=== PATIENT | male | born 1960 | race Caucasian/White ===

== ENCOUNTER 2017-06-07 13:24 | Observation (INO) | payer OTHER ==
[2017-06-07 13:30] VITALS: BMI 33.2
--- NOTE | 2017-06-07 13:30 | PDOC ---
History of Present Illness - General Chief Complaint: Nausea/Vomiting Stated Complaint: vomiting, havent taken pain meds Time Seen by Provider: 06/07/17 13:25 - History of Present Illness Initial Comments: 06/07/17 14:00 57yo male presents ambulatory with his significant other for eval n/v that has been persistent since . States he accidentally threw out his MS Contin 60mg tabs down the toilet on Wednesday. Pt states he thought he was throwing out his tramadol, which his doctor told him to dispose of when he accidentally threw out his MS contin. States he has been in pain management with ERIC Agarwal - [place], [place] ([phone]) for over 15 years and has been on MS contin for that time. Pt states n/v since and last dose of MS contin was Wednesday. Pt states watery diarrhea and vomiting everytime he has tried to eat. C/o abd cramping. Pt denies blood in vomitus or diarrhea. States he has not been able to tolerate PO intake since wednesday. Pt denies f/c. No cp/sob. No abd pain. C/o cramping. No dysuria. No morelos. C/o feeling lightheaded. Pt states he call ERCI Cope at pain management when the incident happened and was told to come in today for a refill of meds. States he had an appt today for 1pm , but felt too lightheaded to make it to the office. Pt states pain management office is in [place]. PMHx: chronic back pain - on chronic pain medications PSHx: denies Allergies: NKDA Past History - Past Medical History Allergies/Adverse Reactions: Allergies Allergy/AdvReac Type Severity Reaction Status Date / Time No Known Allergies Allergy Unverified 01/22/14 08:46 Home Medications: Ambulatory Orders morphine SO4 SUSTAINED ACTING [Ms Contin] 60 mg PO BID 01/22/14 CVA: No COPD: No Other medical history: back - Suicide/Smoking/Psychosocial Hx Smoking History: Current some day smoker Number of Cigarettes Smoked Daily: 10 Information on smoking cessation initiated: Yes 'Breaking Loose' booklet given: 06/07/17 Hx Alcohol Use: No Drug/Substance Use Hx: No Substance Use Type: Prescribed Review of Systems - Review of Systems Able to Perform ROS?: Yes Is the patient limited [place] Citizen proficient: No Constitutional: Yes: Weakness. No: Chills, Fever Respiratory: No: Cough, Shortness of Breath, SOB at Rest Cardiac (ROS): No: Chest Pain, Irregular Heart Rate ABD/GI: Yes: Diarrhea, Nausea, Vomiting, Abdominal cramping. No: Blood Streaked Bowels, Rectal Bleeding, Tarry Stools : No: Burning, Dysuria Musculoskeletal: Yes: Back Pain Neurological: Yes: Weakness, Dizziness (lightheaded). No: Headache, Numbness, Paresthesia, Ataxia All Other Systems: Reviewed and Negative *Physical Exam - Vital Signs Last Vital Signs Temp Pulse Resp BP Pulse Ox 97.6 F 89 18 107/84 98 06/07/17 13:25 06/07/17 13:25 06/07/17 13:25 06/07/17 13:25 06/07/17 13:25 - Physical Exam General Appearance: Yes: Appropriately Dressed, Mild Distress HEENT: positive: EOMI, Pharynx Normal, Other (dry mm, dry cracked tongue) Neck: positive: Supple. negative: Rigid Respiratory/Chest: positive: Lungs Clear, Normal Breath Sounds. negative: Respiratory Distress Cardiovascular: positive: Regular Rhythm, Regular Rate, S1, S2 Gastrointestinal/Abdominal: positive: Flat, Soft. 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 NML intact, Fully Oriented, Alert, Normal Mood/ Affect, Normal Response, Motor Strength 5/5 Heart Score/ECG Review - ECG Intrepretation Comment:: 06/07/17 15:26 sinus at 66, nl axis, nl interval, t wave flattening diffusely, no acute st/t wave findings ED Treatment Course - LABORATORY CBC & Chemistry Diagram: 06/07/17 14:00 06/07/17 14:00 Medical Decision Making - Medical Decision Making 06/07/17 14:47 a/p: 57yo male with n/v/d since throwing out his pain meds accidentally last week -suspect n/v/d from narcotic withdrawal -pt had appt with pain management today -call placed to Karol Cope to discuss the case -will check labs -pt appears dehydrated on exam, will give ivf hydration, nausea control -will monitor and reassess 06/07/17 15:19 pt with elevated wbc - most likely reactive pt with elevated BUN/Cr from baseline of 0.9 sodium 129 Co2 - 20 will keep in obs for ivf hydration -suspect narcotic withdrawal causing n/v/d - dehydration with magaly case discussed with Mirna from [facility] - will keep pt for obs for ivf hydration 06/07/17 16:39 case discussed with Karol Cope - recommends pt call the day he is discharged to arrange for outpt follow up with pain management. states patient is complaint with meds. Asks that the patient bring his discharge summary to the outpt appt. *DC/Admit/Observation/Transfer Diagnosis at time of Disposition: MAGALY (acute kidney injury), Hyponatremia - Discharge Dispostion Condition at time of disposition: Stable Admit: Yes - Referrals - Patient Instructions - Post Discharge Activity
[2017-06-07] MEDS ORDERED: FAMOTIDINE 20 MG/50 ML IVPB 20 MG/50 ML MG IVPB ONE ×2 (13:50→14:07)
[2017-06-07] MEDS ORDERED: ONDANSETRON 4 MG/2 ML VIAL IVPUSH ONE (13:50)
[2017-06-07] MEDS ORDERED: DICYCLOMINE HCL 20 MG/2 ML AMPUL IM ONE (13:50)
[2017-06-07] MEDS ORDERED: SODIUM CHLORIDE 0.9% 1000 ML INFUS.BAG IV ONE ×2 (13:50→13:51)
[2017-06-07] MEDS ORDERED: ONDANSETRON 4 MG/2 ML VIAL ONE (14:07)
[2017-06-07 14:11] LABS: BASO % 4.7 % (0-2.0); HEMATOCRIT 53.4 % (35.4-49); HEMOGLOBIN 18.7 GM/dl (11.7-16.9); LYMPH % 20.8 % (8-40); MCH 32.5 pg (25.7-33.7); MCHC 34.9 g/dl (32.0-35.9); MEAN CELL VOLUME 93.2 fl (80-96); MEAN PLT VOLUME 7.3 fl (7.5-11.1); MONO % 8.6 % (3.8-10.2); NEUT % 64.9 % (42.8-82.8); PLATELET COUNT 355 K/MM3 (134-434); RBC 5.73 M/mm3 (4.00-5.60); RDW 13.3 % (11.9-15.9); WHITE BLOOD COUNT 15.2 K/mm3 (4.0-10.8)
[2017-06-07 14:35] LABS: ALBUMIN 4.3 g/dl (3.5-5.0); ALK PHOS 50 U/L (32-92); ANION GAP 10 (8-16); BILIRUBIN,TOTAL 0.8 mg/dl (0.2-1.0); BLOOD UREA NITROGEN 41 mg/dl (7-18); CALCIUM 8.9 mg/dl (8.4-10.2); CHLORIDE 99 mmol/L (98-107); CO2 20 mmol/L (22-28); GLUCOSE,RANDOM 145 mg/dl (74-106); POTASSIUM 3.8 mmol/L (3.5-5.1); SGOT/AST 35 U/L (10-42); SGPT/ALT 23 U/L (10-40); SODIUM 129 mmol/L (136-145); TOT PROT 7.7 g/dl (6.4-8.3)
[2017-06-07] MEDS ORDERED: morphine CARPU-JECT 4 MG/1 ML DISP.SYRIN IVPUSH ONE (15:18)
[2017-06-07] MEDS ORDERED: DICYCLOMINE HCL 10 MG CAPSULE PO ONE (15:18)
[2017-06-07] MEDS ORDERED: ACETAMINOPHEN 1000 MG/100 ML VIAL (NON FORMULARY) IVPB ONE (15:18)
[2017-06-07] MEDS ORDERED: morphine SULFATE 4 MG/ML VIAL ONE (15:25)
[2017-06-07] MEDS ORDERED: DICYCLOMINE HCL 10 MG CAPSULE ONE (15:38)
[2017-06-07 16:16] LABS: PH,URINE 5.5 (4.5-8); URINE APPEARANCE Clear; URINE BILIRUBIN Negative (NEGATIVE); URINE GLUCOSE (UA) Negative (NEGATIVE); URINE KETONE Negative (NEGATIVE); URINE LEUK ESTERASE Negative (NEGATIVE); URINE NITRITE Negative (NEGATIVE); URINE UROBILINOGEN 0.2 (0.2-1.0)
[2017-06-07 16:20] LABS: URINE BLOOD Trace-lysed (NEGATIVE); URINE COLOR YELLOW; URINE PROTEIN 1+ (NEGATIVE)
[2017-06-07 17:40] LABS: LIPASE 201 U/L (73-393)
[2017-06-07 19:21] LABS: URINE WBC 0-2 (0-2)
[2017-06-07 19:22] LABS: URINE BACTERIA FEW /hpf (NEGATIVE)
[2017-06-07] MEDS ORDERED: ONDANSETRON 4 MG/2 ML VIAL IVPUSH PRN (19:46)
[2017-06-07] MEDS ORDERED: SODIUM CHLORIDE 1,000 ML IV SCH (20:00)
[2017-06-07] MEDS ORDERED: morphine SULFATE 4 MG/ML VIAL IVPUSH ONE (20:45)
[2017-06-07 21:15] LABS: ANION GAP 8 (8-16); BLOOD UREA NITROGEN 33 mg/dl (7-18); CHLORIDE 108 mmol/L (98-107); CO2 17 mmol/L (22-28); CREATININE 1.4 mg/dl (0.6-1.3); GLUCOSE,RANDOM 103 mg/dl (74-106); POTASSIUM 3.1 mmol/L (3.5-5.1); SODIUM 133 mmol/L (136-145)
[2017-06-07] MEDS ORDERED: POTASSIUM CHLORIDE TABS 20 MEQ TABLET.ER (FP) PO ONE (22:17)
--- NOTE | 2017-06-07 23:13 | HP ---
CHIEF COMPLAINT: Nausea, Vomiting, Abdominal Cramping PCP: HISTORY OF PRESENT ILLNESS: This is a 57 y/o man with a past medical history of Chronic Low Back Pain. Who presents to the ED with nausea, vomiting, abdominal cramping, diarrhea x 5days. Patient reports accidentally throwing out his Oxycontin medication. Patient states" I was disposing of my Tramadol because it did not work and I accidentally disposed of my Oxycontin too" Patient reports seeing a pain management provider- Karol REYES, [place] ([phone]) for over 15 years and has been on MS Contin for that time. Patient denies fever, chills, cough, SOB CP, constipation, dysuria. ER course was notable for: (1) Hyponatremia: 129 (2) MAGALY: BUN 41, Cr 2.0 (3) Leukocytosis: 15.2 Recent Travel: None PAST MEDICAL HISTORY: See HPI PAST SURGICAL HISTORY: Social History: Smoking: Current Alcohol: None Drugs: Denies Illicit Family History: Non-contributory Allergies No Known Allergies Allergy (Unverified 01/22/14 08:46) HOME MEDICATIONS: Home Medications Medication Instructions Recorded morphine SO4 SUSTAINED ACTING [Ms 60 mg PO BID 01/22/14 Contin] REVIEW OF SYSTEMS CONSTITUTIONAL: loss of appetite Absent: fever, chills, diaphoresis, generalized weakness, malaise, weight change HEENT: Absent: rhinorrhea, nasal congestion, throat pain, throat swelling, difficulty swallowing, mouth swelling, ear pain, eye pain, visual changes CARDIOVASCULAR: Absent: chest pain, syncope, palpitations, irregular heart rate, lightheadedness , peripheral edema RESPIRATORY: Absent: cough, shortness of breath, dyspnea with exertion, orthopnea, wheezing, stridor, hemoptysis GASTROINTESTINAL:: abdominal pain, nausea, vomiting, diarrhea, Absent: abdominal distension, constipation, melena, hematochezia GENITOURINARY: Absent: dysuria, frequency, urgency, hesitancy, hematuria, flank pain, genital pain MUSCULOSKELETAL: back pain, Absent: myalgia, arthralgia, joint swelling, neck pain SKIN: Absent: rash, itching, pallor HEMATOLOGIC/IMMUNOLOGIC: Absent: easy bleeding, easy bruising, lymphadenopathy, frequent infections ENDOCRINE: Absent: unexplained weight gain, unexplained weight loss, heat intolerance, cold intolerance NEUROLOGIC: Absent: headache, focal weakness or paresthesias, dizziness, unsteady gait, seizure, mental status changes, bladder or bowel incontinence PSYCHIATRIC: Absent: anxiety, depression, suicidal or homicidal ideation, hallucinations. PHYSICAL EXAMINATION Vital Signs - 24 hr 06/07/17 06/07/17 06/07/17 13:25 16:47 19:40 Temperature 97.6 F 98.3 F Pulse Rate 89 Pulse Rate [ 78 Left Radial] Respiratory 18 16 Rate Blood Pressure 107/84 Blood Pressure 118/72 [Right Arm] O2 Sat by Pulse 98 97 99 Oximetry (%) 06/07/17 22:00 Temperature 97.5 F L Pulse Rate 59 L Pulse Rate [ Left Radial] Respiratory 20 Rate Blood Pressure 117/73 Blood Pressure [Right Arm] O2 Sat by Pulse 97 Oximetry (%) GENERAL: Awake, alert, and fully oriented, in no acute distress. HEAD: Normal with no signs of trauma. EYES: Pupils equal, round and reactive to light, extraocular movements intact, sclera anicteric, conjunctiva clear. No lid lag. EARS, NOSE, THROAT: Dry mucous membranes. Ears normal, nares patent, oropharynx clear without exudates. NECK: Normal range of motion, supple without lymphadenopathy, JVD, or masses. LUNGS: Breath sounds equal, clear to auscultation bilaterally. No wheezes, and no crackles. No accessory muscle use. HEART: Regular rate and rhythm, normal S1 and S2 without murmur, rub or gallop. ABDOMEN: Generalized tenderness. Soft, obese, not distended, normoactive bowel sounds, no guarding, no rebound, no masses. No hepatomegaly or splenomegaly. MUSCULOSKELETAL: Lumbar tenderness. Normal range of motion at all joints. No bony deformities. No CVA tenderness. UPPER EXTREMITIES: 2+ pulses, warm, well-perfused. No cyanosis. No clubbing. No peripheral edema. LOWER EXTREMITIES: 2+ pulses, warm, well-perfused. No calf tenderness. No peripheral edema. NEUROLOGICAL: Cranial nerves II-XII intact. Normal speech. Gait not observed. PSYCHIATRIC: Cooperative. Good eye contact. Appropriate mood and affect. SKIN: Warm, dry, normal turgor, no rashes or lesions noted, normal capillary refill. Laboratory Results - last 24 hr 06/07/17 06/07/17 06/07/17 14:00 14:00 14:00 WBC 15.2 H D RBC 5.73 H Hgb 18.7 H D Hct 53.4 H MCV 93.2 MCH 32.5 MCHC 34.9 RDW 13.3 D Plt Count 355 D MPV 7.3 L Neutrophils % 64.9 Lymphocytes % 20.8 D Monocytes % 8.6 Eosinophils % 1.0 Basophils % 4.7 H D Sodium 129 L Potassium 3.8 Chloride 99 Carbon Dioxide 20 L D Anion Gap 10 BUN 41 H D Creatinine 2.0 H D Creat Clearance w eGFR 34.37 Random Glucose 145 H Lactic Acid 2.0 Calcium 8.9 Magnesium 2.0 Total Bilirubin 0.8 D AST 35 D ALT 23 D Alkaline Phosphatase 50 Total Protein 7.7 Albumin 4.3 Lipase 201 Urine Color Urine Appearance Urine pH Ur Specific [place] Urine Protein Urine Glucose (UA) Urine Ketones Urine Blood Urine Nitrite Urine Bilirubin Urine Urobilinogen Ur Leukocyte Esterase Urine RBC Urine WBC Urine Bacteria 06/07/17 06/07/17 15:34 20:30 WBC RBC Hgb Hct MCV MCH MCHC RDW Plt Count MPV Neutrophils % Lymphocytes % Monocytes % Eosinophils % Basophils % Sodium 133 L Potassium 3.1 L Chloride 108 H Carbon Dioxide 17 L Anion Gap 8 BUN 33 H Creatinine 1.4 H D Creat Clearance w eGFR Random Glucose 103 D Lactic Acid Calcium 7.0 L D Magnesium Total Bilirubin AST ALT Alkaline Phosphatase Total Protein Albumin Lipase Urine Color Yellow Urine Appearance Clear Urine pH 5.5 Ur Specific [place] 1.025 Urine Protein 1+ H Urine Glucose (UA) Negative Urine Ketones Negative Urine Blood Trace-lysed H Urine Nitrite Negative Urine Bilirubin Negative Urine Urobilinogen 0.2 Ur Leukocyte Esterase Negative Urine RBC 2-5 Urine WBC 0-2 Urine Bacteria Few ASSESSMENT/PLAN: This is a 57 y/o man with a PMHx of Chronic Back Pain. Placed in Observation for Hyponatremia, Severe Dehydration. Plan: 1. Hyponatremia - Likely secondary to dehydration from excessive emesis due to opioid withdrawal. - Na deficit 732.6meq - NS bolus given in ED - BMPs Q4h until Na corrected - Goal Na correction 6-8 meq/24hrs 2. Dehydration - See above - IVF until patient can tolerate po 3. Hypokalemia - Secondary to gastric losses (emesis/diarrhea) - Repleted with KCL - Repeat BMP in am 4. MAGALY - Likely secondary to dehydration - IVF - Monitor BMP 5. Chronic Back Pain - [employer] checked [place]- Morphine Sulfate ER 60mg BID (last filled 05/10/17) - Will resume home med when patient can tolerate PO - Morphine Sulfate IV prn - Lidocaine Patch - FU with Pain Mgmt in outpatient as indicated 6. Leukocytosis - Likely secondary to Stress vs inflammatory response vs Infectious - On exam: pt is afebrile does not appear septic, lactic acid 2.0, no indicator for ABX therapy - Repeat CBC in am 7. F/E/N - D5w@42cc/hr - K repleted, Na repleted, monitor - Clear Diet ad mikel 8. DVT Prophylaxis - OOB - SCDs - Consider ACs if LOS > 48hrs Code Status: Full Code Dispo: Observation Problem List - Problem (1) Hyponatremia Code(s): E87.1 - HYPO-OSMOLALITY AND HYPONATREMIA (2) Hypokalemia, gastrointestinal losses Code(s): E87.6 - HYPOKALEMIA (3) MAGALY (acute kidney injury) Code(s): N17.9 - ACUTE KIDNEY FAILURE, UNSPECIFIED (4) Leukocytosis Code(s): D72.829 - ELEVATED WHITE BLOOD CELL COUNT, UNSPECIFIED (5) Chronic lower back pain Code(s): M54.5 - LOW BACK PAIN; G89.29 - OTHER CHRONIC PAIN (6) DVT prophylaxis Code(s): GCS1098 - Visit type - Emergency Visit Emergency Visit: Yes ED Registration Date: 06/07/17 Care time: The patient presented to the Emergency Department on the above date and was hospitalized for further evaluation of their emergent condition. - New Patient This patient is new to me today: Yes Date on this admission: 06/07/17 - Critical Care Critical Care patient: No Hospitalist Screening - Colonoscopy Questionnaire Colonoscopy Questionnaire: Colonoscopy Questionnaire - Patient: 50 - 75 years old and never had a screening colonoscopy: No History of colon or rectal polyps, or CA: No History of IBD, Crohn's disease or UC: No History of abdominal radiation therapy as a child: No - Relative: 1 with colon or rectal CA, or polyps at age 60 or younger: No Colon or rectal CA diagnosed at age 45 or younger: No Multiple relatives with colon or rectal CA: No - Outcome: Screening Result: Negative Screen
[2017-06-08] MEDS: LIDOCAINE 5% TOPICAL PATCH TP SCH ×2 (01:16→10:39)
[2017-06-08 02:40] LABS: ANION GAP 13 (8-16); BLOOD UREA NITROGEN 28 mg/dL (7-18); CALCIUM 7.6 mg/dL (8.5-10.1); CHLORIDE 100 mmol/L (98-107); CO2 22 mmol/L (21-32); CREATININE 1.3 mg/dL (0.7-1.3); GLUCOSE,RANDOM 94 mg/dL (74-106); MAGNESIUM 2.3 mg/dL (1.8-2.4); PHOSPHOROUS 3.5 mg/dL (2.5-4.9); POTASSIUM 3.5 mmol/L (3.5-5.1); SODIUM 135 mmol/L (136-145)
[2017-06-08] MEDS ORDERED: DEXTROSE 5%-WATER - 1,000 ML IV SCH (03:15)
[2017-06-08] MEDS ORDERED: morphine CARPU-JECT 10 MG/1 ML DISP.SYRIN IVPUSH ONE (03:29)
[2017-06-08 06:20] VITALS: BP 116/62; PULSE 50; TEMP 97.6
[2017-06-08 08:41] LABS: BASO % 0.3 % (0-2.0); EOS % 2.3 % (0-4.5); HEMATOCRIT 44.3 % (35.4-49); HEMOGLOBIN 15.6 GM/dl (11.7-16.9); LYMPH % 31.2 % (8-40); MCH 32.8 pg (25.7-33.7); MCHC 35.2 g/dl (32.0-35.9); MEAN CELL VOLUME 93.1 fl (80-96); MEAN PLT VOLUME 7.1 fl (7.5-11.1); MONO % 7.1 % (3.8-10.2); NEUT % 59.1 % (42.8-82.8); PLATELET COUNT 282 K/MM3 (134-434); RBC 4.76 M/mm3 (4.00-5.60); RDW 12.8 % (11.9-15.9); WHITE BLOOD COUNT 8.6 K/mm3 (4.0-10.8)
--- NOTE | 2017-06-08 11:28 | DS ---
Physical Exam: SUBJECTIVE: Patient seen and examined, patient reports feeling much improved tolerating meals, denies any abdominal pain, nausea or vomiting. OBJECTIVE:This is a 57 y/o man with a past medical history of Chronic Low Back Pain. Who presents to the ED with nausea, vomiting, abdominal cramping, diarrhea x 5days. Patient reports accidentally throwing out his Oxycontin medication. Patient states" I was disposing of my Tramadol because it did not work and I accidentally disposed of my Oxycontin too" Patient reports seeing a pain management provider- Karol REYES, [place], [place] ([phone]) for over 15 years and has been on MS Contin for that time. Patient denies fever, chills, cough, SOB CP, constipation, dysuria. ER course was notable for: (1) Hyponatremia: 129 (2) MAGALY: BUN 41, Cr 2.0 (3) Leukocytosis: 15.2 Vital Signs Period Temp Pulse Resp BP Sys/Sotelo Pulse Ox Last 24 Hr 97.5 F-98.3 F 50-89 16-20 107-145/62-84 96-99 PHYSICAL EXAM GENERAL: The patient is awake, alert, and fully oriented, in no acute distress. HEAD: Normal with no signs of trauma. EYES: PERRL, extraocular movements intact, sclera anicteric, conjunctiva clear. ENT: Ears normal, nares patent, oropharynx clear without exudates, moist mucous membranes. NECK: Trachea midline, full range of motion, supple. LUNGS: Breath sounds equal, clear to auscultation bilaterally, no wheezes, no crackles, no accessory muscle use. HEART: Regular rate and rhythm, S1, S2 without murmur, rub or gallop. ABDOMEN: Soft, nontender, nondistended, normoactive bowel sounds, no guarding, no rebound, no hepatosplenomegaly, no masses. EXTREMITIES: 2+ pulses, warm, well-perfused, no edema. NEUROLOGICAL: Cranial nerves II through XII grossly intact. Normal speech, gait not observed. PSYCH: Normal mood, normal affect. SKIN: Warm, dry, normal turgor, no rashes or lesions noted. LABS CBC WBC 8.6 K/mm3 (4.0-10.8) D 06/08/17 07:45 RBC 4.76 M/mm3 (4.00-5.60) 06/08/17 07:45 Hgb 15.6 GM/dl (11.7-16.9) D 06/08/17 07:45 Hct 44.3 % (35.4-49) D 06/08/17 07:45 MCV 93.1 fl (80-96) 06/08/17 07:45 MCH 32.8 pg (25.7-33.7) 06/08/17 07:45 MCHC 35.2 g/dl (32.0-35.9) 06/08/17 07:45 RDW 12.8 % (11.9-15.9) 06/08/17 07:45 Plt Count 282 K/MM3 (134-434) D 06/08/17 07:45 MPV 7.1 fl (7.5-11.1) L 06/08/17 07:45 Neutrophils % 59.1 % (42.8-82.8) 06/08/17 07:45 Lymphocytes % 31.2 % (8-40) D 06/08/17 07:45 Monocytes % 7.1 % (3.8-10.2) 06/08/17 07:45 Eosinophils % 2.3 % (0-4.5) D 06/08/17 07:45 Basophils % 0.3 % (0-2.0) 06/08/17 07:45 CMP Sodium 135 mmol/L (136-145) L 06/08/17 01:40 Potassium 3.5 mmol/L (3.5-5.1) 06/08/17 01:40 Chloride 100 mmol/L (98-107) 06/08/17 01:40 Carbon Dioxide 22 mmol/L (21-32) 06/08/17 01:40 Anion Gap 13 (8-16) 06/08/17 01:40 BUN 28 mg/dL (7-18) H 06/08/17 01:40 Creatinine 1.3 mg/dL (0.7-1.3) 06/08/17 01:40 Creat Clearance w eGFR 34.37 (>60) 06/07/17 14:00 Random Glucose 94 mg/dL (74-106) 06/08/17 01:40 Lactic Acid 2.0 mmol/L (0.0-2.0) 06/07/17 14:00 Calcium 7.6 mg/dL (8.5-10.1) L 06/08/17 01:40 Phosphorus 3.5 mg/dL (2.5-4.9) 06/08/17 01:40 Magnesium 2.3 mg/dL (1.8-2.4) 06/08/17 01:40 Total Bilirubin 0.8 mg/dl (0.2-1.0) D 06/07/17 14:00 AST 35 U/L (10-42) D 06/07/17 14:00 ALT 23 U/L (10-40) D 06/07/17 14:00 Alkaline Phosphatase 50 U/L (32-92) 06/07/17 14:00 Total Protein 7.7 g/dl (6.4-8.3) 06/07/17 14:00 Albumin 4.3 g/dl (3.5-5.0) 06/07/17 14:00 Lipase 201 U/L (73-393) 06/07/17 14:00 HOSPITAL COURSE: 1. Hyponatremia - Likely secondary to dehydration from excessive emesis due to opioid withdrawal. - Na deficit 732.6meq - NS bolus given in ED, serum sodium corrected to 135 2. Dehydration - resolved, patient is tolerating regular diet 3. Hypokalemia - Secondary to gastric losses (emesis/diarrhea), resolved - Repleted with KCL 4. MAGALY - Likely secondary to dehydration, repeat creatine this AM 1.3 - IVF - Monitor BMP 5. 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 Leukocytosis - Likely secondary to Stress vs inflammatory response vs Infectious - On exam: pt is afebrile does not appear septic, lactic acid 2.0, no indicator for ABX therapy - Repeat CBC in am, leukocytosis resolved PLAN - discharge home with follow up with pain management Date of Admission:06/07/17 Date of Discharge: 06/08/17 Minutes to complete discharge: 45 Discharge Summary Reason For Visit: ACUTE KIDNEY INJURY Current Active Problems MAGALY (acute kidney injury) (Acute) Chronic lower back pain (Acute) DVT prophylaxis (Acute) Hypokalemia, gastrointestinal losses (Acute) Hyponatremia (Acute) Leukocytosis (Acute) Condition: Improved - Instructions Diet, Activity, Other Instructions: please follow up with your pain management physician today if any new or persistent symptoms develop please return to the emergency department. Disposition: HOME - Home Medications Comprehensive Discharge Medication List: Ambulatory Orders morphine SO4 SUSTAINED ACTING [Ms Contin] 60 mg PO BID 01/22/14 This patient is new to me today: Yes Date on this admission: 06/08/17 Emergency Visit: No Critical Care patient: No - Discharge Referral Referred to [facility] No
[2017-06-08] MEDS ORDERED: morphine SO4 SUSTAINED ACTING 30 MG TABLET.SA PO SCH (11:30)
[2017-06-08] MEDS ORDERED: POTASSIUM CHLORIDE TABS 20 MEQ TABLET.ER (FP) PO SCH (11:45)
--- NOTE | 2017-06-08 12:00 | EKG ---
Test Reason : Blood Pressure : / mmHG Vent. Rate : 066 BPM Atrial Rate : 066 BPM P-R Int : 152 ms QRS Dur : 076 ms QT Int : 452 ms P-R-T Axes : 037 005 057 degrees QTc Int : 473 ms POOR DATA QUALITY, INTERPRETATION MAY BE ADVERSELY AFFECTED NORMAL SINUS RHYTHM NORMAL ECG NO PREVIOUS ECGS AVAILABLE Confirmed by MD Alissa, Nima ([id number]) on 06/08/2017 12:00:00 PM Referred By: Confirmed By:Nima Maxwell MD
[2017-06-08] MEDS ORDERED: LIDOCAINE PATCH REMOVAL MC SCH (22:00)
== END 2017-06-08 12:59 | disposition home or self-care (01) ==
LOC: FER 13:24 → FM/S 17:06
PROVIDERS: ADMIT Internal Medicine; ATTEND Nurse Practitioner Family
PROC: 3E033NZ Introduction of Analgesics, Hypnotics, Sedatives into Peripheral Vein, Percutaneous Approach (ICD-10-PCS; principal; 2017-06-07)
PROC: 3E033GC Introduction of Other Therapeutic Substance into Peripheral Vein, Percutaneous Approach (ICD-10-PCS; 2017-06-07)
PROC: 3E0337Z Introduction of Electrolytic and Water Balance Substance into Peripheral Vein, Percutaneous Approach (ICD-10-PCS; 2017-06-07)
DX: N17.9 Acute kidney failure, unspecified (principal); E87.1 Hypo-osmolality and hyponatremia; E86.0 Dehydration; F17.210 Nicotine dependence, cigarettes, uncomplicated; M54.5 Low back pain; G89.29 Other chronic pain; E87.6 Hypokalemia; D72.829 Elevated white blood cell count, unspecified
CPT/HCPCS: 36415; 71046-TC-FY; 80048; 80053; 81003; 81015; 83605; 83690; 83735; 84100; 85025; 93005; 96374; 96375; 96376; 99285-25; G0378; J0131; J7030